=== PATIENT | female | born 1955 | race Caucasian/White ===

== ENCOUNTER 2021-02-25 14:54 | Outpatient (CLI) | payer BC | END 2021-02-25 14:55 | disposition home or self-care (01) | LOC: CSHMRI 14:54 | PROVIDERS: ATTEND Specialist | DX: G95.0 Syringomyelia and syringobulbia (principal); M51.34 Other intervertebral disc degeneration, thoracic region | CPT/HCPCS: 72157; 82565 ==

== ENCOUNTER 2022-08-11 06:29 | Emergency (ER) | payer BC | END 2022-08-11 07:07 | disposition left against medical advice (07) | LOC: CSHERS 06:29 | DX: Z53.21 Procedure and treatment not carried out due to patient leaving prior to being seen by health care provider (principal) ==